=== PATIENT | male | born 1950 | race Caucasian/White ===

== ENCOUNTER 2020-12-19 09:06 | Outpatient (CLI) | payer BC ==
[~2020-12-19] VITALS: Ht 180.3 cm; Wt 105.4 kg
[2020-12-19] MEDS ORDERED: AMBIEN 10MG10 MG PO (09:34)
[2020-12-19] MEDS ORDERED: COZAAR100 MG PO (09:35)
[2020-12-19] MEDS ORDERED: ZOCOR 20MG20 MG PO (09:35)
[2020-12-19 09:43] VITALS: BP 134/79; PULSE 64; TEMP 97.5
[2020-12-19 10:00] VITALS: BP 119/75; PULSE 58
[2020-12-19 10:15] VITALS: BP 131/79; PULSE 56
[2020-12-19 10:30] VITALS: BP 134/70; PULSE 54
[2020-12-19 10:45] VITALS: BP 139/86; PULSE 56
[2020-12-19 11:00] VITALS: BP 138/73; PULSE 56; TEMP 97.8
--- NOTE | 2020-12-19 11:15 | NUR ---
Pt tolerated infusion without issue. INT DC'd. Pt escorted out to ED entrance.
== END 2020-12-19 11:38 | disposition home or self-care (01) ==
LOC: EUO 09:06
DX: J02.9 Acute pharyngitis, unspecified (principal)
CPT/HCPCS: Q0244